=== PATIENT | female | born 1990 | race Caucasian/White ===

== ENCOUNTER 2017-01-10 14:29 | Emergency (ER) | payer BC ==
[2017-01-10 15:12] VITALS: BP 108/61
--- NOTE | 2017-01-10 16:04 | UC ---
Complaint Female HPI - HPI Summary HPI Summary: four days fo urinary frequency and burning with urination. no fever. no abdominal pain. no back pain. - History Of Current Complaint Chief Complaint: UCGU Stated Complaint: URINARY COMPLAINT Time Seen by Provider: 01/10/17 15:02 Hx Obtained From: Patient Hx Last Menstrual Period: 01/07/17 ?: No Onset/Duration: Gradual Onset, Lasting Days, Still Present Timing: Lasting Days Severity Initially: Mild Severity Currently: Mild Pain Intensity: 0 Pain Scale Used: 0-10 Numeric Character: Dull, Burning Aggravating Factor(s): Urination Associated Signs And Symptoms: Negative: Fever, Back Pain, Nausea, Vomiting(# Of Episodes =) - Risk Factors Ectopic Risk Factor: Negative Ovarian Torsion Risk Factor: Negative - Allergies/Home Medications Allergies/Adverse Reactions: Allergies Allergy/AdvReac Type Severity Reaction Status Date / Time No Known Allergies Allergy Verified 01/10/17 15:12 PMH/Surg Hx/FS Hx/Imm Hx Previously Healthy: Yes - Surgical History Surgical History: None - Family History Known Family History: Negative: Renal Disease - Social History Occupation: Employed Full-time Lives: With Family Alcohol Use: Rare Substance Use Type: None Smoking Status (MU): Never Smoked Tobacco Review of Systems Constitutional: Negative Skin: Negative Eyes: Negative ENT: Negative Respiratory: Negative Cardiovascular: Negative Gastrointestinal: Negative Genitourinary: Dysuria, Frequency, Urgency Motor: Negative Neurovascular: Negative Musculoskeletal: Negative Neurological: Negative Psychological: Negative All Other Systems Reviewed And Are Negative: Yes Physical Exam Triage Information Reviewed: Yes Appearance: Well-Appearing, No Pain Distress, Well-Nourished Vital Signs: Initial Vital Signs Temp 99.1 F 01/10/17 15:09 Pulse 58 01/10/17 15:09 Resp 16 01/10/17 15:09 BP 108/61 01/10/17 15:09 Pulse Ox 100 01/10/17 15:09 Vital Signs Reviewed: Yes Eye Exam: Normal ENT Exam: Normal ENT: Positive: Normal ENT inspection Dental Exam: Normal Neck exam: Normal Neck: Positive: Supple, Nontender, No Lymphadenopathy Respiratory Exam: Normal Respiratory: Positive: Chest non-tender, Lungs clear, Normal breath sounds, No respiratory distress, No accessory muscle use Cardiovascular Exam: Normal Cardiovascular: Positive: RRR, No Murmur, Pulses Normal Abdominal Exam: Normal Abdomen Description: Positive: Nontender, No Organomegaly, Soft. Negative: CVA Tenderness (R), CVA Tenderness (L) Musculoskeletal Exam: Normal Neurological Exam: Normal Psychological Exam: Normal Skin Exam: Normal Complaint Female Dx - Differential Dx/Diagnosis Differential Diagnosis/HQI/PQRI: Cervicitis, Sexually Transmitted Disease, Urinary Tract Infection, Other - BV; CANDIAIASIS Provider Diagnoses: DYSURIA Discharge - Discharge Plan Condition: Stable Disposition: HOME Prescriptions: Fluconazole [Diflucan 150 MG (NF)] 150 mg PO ONCE #1 tab Patient Education Materials: Dysuria (ED) Referrals: Greyson Ware MD [Primary Care Provider] -
== END 2017-01-10 15:45 | disposition home or self-care (01) ==
LOC: UCCORT 14:29
DX: R35.0 Frequency of micturition (principal)
CPT/HCPCS: 81003; 87480; 87510; 87660; 99212; G0463

== ENCOUNTER 2018-06-12 14:44 | Emergency (ER) | payer SELFPAY ==
[2018-06-12 15:20] VITALS: BP 123/62
--- NOTE | 2018-06-12 16:34 | UC ---
Abdominal Pain Female HPI - HPI Summary HPI Summary: Patient presents to urgent care with 2 complaints. Patient states she's had malodorous discharge the last 4 days. Patient states that history of BV and this feels similar. Patient states his been little bit brown color which is unusual. Patient states since yesterday she's had an urine dysuria. No fevers or chills. No nausea vomiting. No frequency. Patient states she was last treatment for BV approximately 3 weeks ago by her OB Dr. Fischer. Patient states her periods are irregular and she gets her menses twice a month. Patient states her doctor has not discussed with plan for this. Patient states she's never had any STD eyes. We'll like to be checked for this today. Patient states she does not believe she is her last period was 2 weeks ago but okay that we checked. Patient without any other complaints. Patient's medications reviewed this visit. - History of Current Complaint Chief Complaint: UCGU Stated Complaint: URINARY Time Seen by Provider: 06/12/18 16:24 Hx Obtained From: Patient Hx Last Menstrual Period: 05/31/18 Onset/Duration: Gradual Onset Severity Initially: Mild Severity Currently: None Pain Intensity: 0 Allergies/Adverse Reactions: Allergies Allergy/AdvReac Type Severity Reaction Status Date / Time No Known Allergies Allergy Verified 06/12/18 15:17 PMH/Surg Hx/FS Hx/Imm Hx Previously Healthy: Yes GI/ History: Other - recurrent BV - Surgical History Surgical History: None - Family History Known Family History: Positive: Non-Contributory Negative: Renal Disease - Social History 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 Lives: With Family Alcohol Use: Rare Substance Use Type: None Smoking Status (MU): Never Smoked Tobacco Review of Systems All Other Systems Reviewed And Are Negative: Yes Constitutional: Positive: Negative Skin: Positive: Negative Genitourinary: Positive: Frequency, Vaginal/Penile Discharge Physical Exam - Summary Physical Exam Summary: Vital Signs Reviewed: Yes A+Ox3, no distress Eyes: Conjunctiva Clear ENT: Hearing grossly normal neck: supple Respiratory: Positive: No respiratory distress, No accessory muscle use Cardiovascular: skin color reflect adequate perfusion abd soft, no CVA pelvic: RN chapnickie - no lesions, scant frithy discharge, + odor, no bleeding No CMT no masses, no pain bimanual Musculoskeletal Exam: RANDOLPH x 4 without difficulty Neurological: Positive: Alert, ambulatory without difficulty Psychological: Positive: Normal Response To Family Skin: Positive: no rash, no ecchymosis Triage Information Reviewed: Yes Vital Signs: Initial Vital Signs Temp 98 F 06/12/18 15:16 Pulse 58 06/12/18 15:16 Resp 14 06/12/18 15:16 BP 123/62 06/12/18 15:16 Pulse Ox 100 06/12/18 15:16 Abd Pain Female Course/Dx - Course Course Of Treatment: pt presents to with 24 horus of end urination dysuria. Pt denies hematuria. Pt also with 4 days of fish-like odor vaginal discharge, brown in color. Pt with recurrent BV - last tx 3 weeks - OB Amado Martin. urine with 1+ LE - given sx, will start tx, will culture - aware will receive call if okay to d/c abx. pelvic exam: - will tx for BV - alcohol precaution - pt states understanding. will f/u with OB. aware STI cultures pending - Differential Dx/Diagnosis Provider Diagnosis: Vaginitis, Dysuria Discharge - Sign-Out/Discharge Documenting (check all that apply): Patient Departure All imaging exams completed and their final reports reviewed: No Studies - Discharge Plan Condition: Stable Disposition: HOME Patient Education Materials: Bacterial Vaginosis (ED), Urinary Tract Infection in Women (ED) Referrals: Greyson Ware MD [Primary Care Provider] - Additional Instructions: - Take flagyl as prescribed for BV - do not use douche, bath soaks or scented lubricants - contact your OB doctor for a follow-up appointment to discuss further treatment options for recurrent BV - you have been started on an antibiotics today for a UTI - as discussed, your urine has been sent for additional testing -t his takex 2-3 days - you may receive a call to stop antibiotics if there is no growth in your urine - okay to use medication as prescribed for urinary burning - you had samples sent for gonorrhea and chlaymdia - if you need treatment, you will receive a call from a care steam service inspector -contact your doctor or return with questions or concerns - Billing Disposition and Condition Condition: STABLE Disposition: Home
== END 2018-06-12 17:15 | disposition home or self-care (01) ==
LOC: UCCORT 14:44
DX: N76.0 Acute vaginitis (principal); B96.89 Other specified bacterial agents as the cause of diseases classified elsewhere; R30.0 Dysuria
CPT/HCPCS: 81003; 84702; 87086; 87480; 87491; 87510; 87591; 99212; G0463